=== PATIENT | male | born 1955 | race Caucasian/White ===

== ENCOUNTER 2023-11-15 14:19 | Outpatient (AMB) | payer MEDICARE, SELFPAY ==
[2023-11-15 14:20] VITALS: BP 142/68; PULSE 85; RESP 16; O2SAT 96; BMI 28.5
--- NOTE | 2023-11-15 14:20 | MHC.OFFVIS ---
Intake Vital Signs 11/15/23 14:20 Height 5 ft 9 in Weight 193 lb 2 oz BMI 28.5 BP 142/68 H Blood Pressure Location Rt brachial Position Sitting Respiration 16 Pulse 85 Pulse Oximetry (%) 96 Oxygen Delivery Method Room Air Intake Visit Reasons: E-EXTERIOR DOOR INSTALLER: Tremors-CONF Intake Note: Pt presents for new pt evaluation for tremors. Pt reports having tremors of both hands for about 10 years now but it is getting worse. 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 It started as a mild right hand tremors and intermittent about 10 years ago .It has worsened and now has left hand tremors. He has tremors when he is eating drinking and is socially awkward. It is more when he stressed. He has some trouble writing intermittently. Mild trouble with utensils. He can shower , dress with no problems No change in walking No voice tremors, head tremors His son is 40 and is starting to notice tremors.(mild head tremors) He denies depression or anxiety. He had a fall on ice and hit his head. He rondon son and off constipation. sleep is ok. COUNTS INCLUDE 234 BEDS AT THE [facility] Medical History (Updated 11/15/23 @ 15:24 by Tonja Mcdonald MD) Coarse tremors GERD (gastroesophageal reflux disease) Back pain Erectile dysfunction Hyperlipidemia Prostate cancer Arthritis Surgical History (Updated 11/15/23 @ 14:26 by Padmini Shoemaker CMA) Hx of knee surgery History of back surgery Family History (Updated 11/15/23 @ 14:28 by Padmini Shoemaker CMA) Father No problems noted. Mother No problems noted. Sister Stomach cancer Liver disease Lung disease Social History (Updated 11/15/23 @ 14:29 by Padmini Shoemaker CMA) Household Members: Spouse Housing: House Alcohol intake: current Comment: Occasional glass of wine Patient Tobacco Use Status: Never used Tobacco Physical Exam Vital Signs: Last Vital Signs Pulse 85 11/15/23 14:20 Resp 16 11/15/23 14:20 BP 142/68 H 11/15/23 14:20 Pulse Ox 96 11/15/23 14:20 Oxygen Delivery Method Room Air 11/15/23 14:20 BMI result Body Mass Index 28.5 Const General: cooperative, healthy appearing, comfortable and no acute distress Nutritional Appearance: average body habitus Orientation/consciousness: patient oriented x3 HEENT Head: Yes normal to inspection, Yes normocephalic and Yes atraumatic Eyes Pupils: Equal, round and reactive pupils present Neuro Other: Mild johana rest tremors R>L Mild johana postural tremors and action tremors mild difficulty with arcimedes spiral on the left Hand writing - good FFM - mildly decreased johana Foot Taps - mildly decreased johana Gait - good stride , decreased arm swing on the left General: patient oriented x3, tone normal, moves all extremities and no focal motor deficits Cranial nerves: Yes CN's II-XII intact bilaterally, Yes Facial sensation intact/muscles of mastication intact, Yes Equal, round and reactive pupils present, Yes Bilaterally intact EOM present, Yes Nystagmus not present, Yes Normal facial strength present, Yes Midline tongue present and Yes Symmetric palate elevation present Cognition (Neuro): normal cognition Motor exam (neuro): 5/5 motor strength present throughout and Normal motor muscle tone present throughout Deep tendon reflexes (DTR's): Right triceps reflex intensity grade: 2+, Left triceps reflex intensity grade: 2+, Rt Biceps (C5, C6): 2+, Left biceps reflex intensity grade: 2+, Right brachioradialis reflex intensity grade: 2+, Left brachioradialis reflex intensity grade: 2+, Right patellar reflex intensity grade: 2+ and Left patellar reflex intensity grade: 2+ Coordination: [id number] test normal Assessment & Plan Assessment & Plan (1) Coarse tremors: Comment: likely essential with Mild extrapyramidal symptoms Code(s): G25.2 - Other specified forms of tremor Plan I will evaluate him with MRI brain and Yovany scan . Propranolol 10mg as needed for tremors. Orders: Orders MR head/brain wo con Today G25.2 - Other specified forms of tremor DaTscan Today G25.2 - Other specified forms of tremor Medications: New propranolol 10 mg PO TID PRN 90 tabs 6RF tremors Coding Level of Care Code New Pt Level 4 (53537) Diagnoses Coarse tremors G25.2
== END 2023-11-15 15:08 | disposition home or self-care (01) ==
PROVIDERS: PCP Internal Medicine; Visit Provider Psychiatry & Neurology Neurology
DX: G25.2 Other specified forms of tremor (principal)
CPT/HCPCS: 99204

== ENCOUNTER → 2023-11-15 14:19 | Outpatient (BNVA) | payer MEDICARE, SELFPAY | PROVIDERS: PCP Internal Medicine; Visit Provider Psychiatry & Neurology Neurology | DX: G25.2 Other specified forms of tremor (principal) | CPT/HCPCS: 99202 ==

== ENCOUNTER 2023-12-13 08:06 | Outpatient (REF) | payer MEDICARE, SELFPAY ==
--- NOTE | ~2023-12-13 | MR_ITS ---
EXAMINATION: MR BRAIN WITHOUT CONTRAST CLINICAL INFORMATION: Tremor COMPARISON: None available. TECHNIQUE: MRI of the brain was obtained using routine sequences without contrast. FINDINGS: No acute intracranial hemorrhage or infarct. Scattered and confluent periventricular and deep white matter T2/FLAIR hyperintensities, nonspecific however commonly seen with small vessel ischemic disease. No midline shift or hydrocephalus. No acute extra-axial fluid collections. The osseous structures are unremarkable. The pituitary gland, pineal gland and remaining midline structures are unremarkable. No orbital pathology. Mild mucosal thickening of the paranasal sinuses. The mastoid air cells are clear. MR/MR head/brain wo con IMPRESSION: No acute intracranial abnormality.
== END 2023-12-13 08:07 | disposition home or self-care (01) ==
LOC: HO.MRI 08:06
PROVIDERS: PCP Internal Medicine; Visit Provider Psychiatry & Neurology Neurology
DX: G25.2 Other specified forms of tremor (principal)
CPT/HCPCS: 70551

== ENCOUNTER 2024-05-28 13:19 | Outpatient (AMB) | payer MEDICARE, SELFPAY ==
[2024-05-28 13:27] VITALS: BP 120/66; PULSE 67; RESP 16; O2SAT 99; BMI 28.0
--- NOTE | 2024-05-28 13:27 | A.OFFVIS_ITS ---
Vital Signs 05/28/24 13:27 Height 5 ft 9 in Weight 189 lb 8 oz BMI 28.0 BP 120/66 Blood Pressure Location Rt brachial Position Sitting Respiration 16 Pulse 67 Pulse Source Pulse Oximeter Pulse Oximetry (%) 99 Oxygen Delivery Method Room Air Intake Visit Reasons: 6 month F/U Intake Note: Pt presents to the office for a 6 month follow up for coarse tremors. 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 MRI brain was normal and MARCELLE scan was negative. History from initial visit-It started as a mild right hand tremors and intermittent about 10 years ago .It has worsened and now has left hand tremors. He has tremors when he is eating drinking and is socially awkward. It is more when he stressed. He has some trouble writing intermittently. Mild trouble with utensils. He can shower , dress with no problems No change in walking No voice tremors, head tremors His son is 40 and is starting to notice tremors.(mild head tremors) He denies depression or anxiety. He had a fall on ice and hit his head. He rondon son and off constipation. sleep is ok. [facility] Medical History Coarse tremors GERD (gastroesophageal reflux disease) Back pain Erectile dysfunction Hyperlipidemia Prostate cancer Arthritis Surgical History Hx of knee surgery History of back surgery Family History Father No problems noted. Mother No problems noted. Sister Stomach cancer Liver disease Lung disease Social History Household Members: Spouse Housing: House Alcohol intake: current Comment: Occasional glass of wine Patient Tobacco Use Status: Never used Tobacco Physical Exam Vital Signs: Last Vital Signs Pulse 67 05/28/24 13:27 Resp 16 05/28/24 13:27 BP 120/66 05/28/24 13:27 Pulse Ox 99 05/28/24 13:27 Oxygen Delivery Method Room Air 05/28/24 13:27 BMI result Body Mass Index 28.0 Const General: cooperative, healthy appearing, comfortable and no acute distress Nutritional Appearance: average body habitus Orientation/consciousness: patient oriented x3 HEENT Head: Yes normal to inspection, Yes normocephalic and Yes atraumatic Eyes Pupils: Equal, round and reactive pupils present Neuro Other: No tremors today mild difficulty with arcimedes spiral on the left Hand writing - good FFM - mildly decreased johana Foot Taps - mildly decreased johana Gait - good stride , decreased arm swing on the left General: patient oriented x3, tone normal, moves all extremities and no focal motor deficits Cranial nerves: Yes CN's II-XII intact bilaterally, Yes Facial sensation intact/muscles of mastication intact, Yes Equal, round and reactive pupils pres ent, Yes Bilaterally intact EOM present, Yes Nystagmus not present, Yes Normal facial strength present, Yes Midline tongue present and Yes Symmetric palate elevation present Motor exam (neuro): 5/5 motor strength present throughout and Normal motor muscle tone present throughout Coordination: [id number] test normal Assessment & Plan Assessment & Plan (1) Coarse tremors: Comment: likely essential with Mild extrapyramidal symptoms MARCELLE - negative MRI Normal Code(s): G25.2 - Other specified forms of tremor Category: Medical Plan Reviewed MRI and MARCELLE scan results Continue Propranolol 10mg as needed for tremors. Medications: Refilled propranolol 10 mg PO TID PRN 90 tabs 6RF tremors Coding Level of Care Code Est Pt Level 4 (33599) Diagnoses Coarse tremors G25.2
== END 2024-05-28 13:50 | disposition home or self-care (01) ==
PROVIDERS: PCP Internal Medicine; Visit Provider Psychiatry & Neurology Neurology
DX: G25.2 Other specified forms of tremor (principal)
CPT/HCPCS: 99214

== ENCOUNTER → 2024-05-28 13:19 | Outpatient (BNVA) | payer MEDICARE, SELFPAY | PROVIDERS: PCP Internal Medicine; Visit Provider Psychiatry & Neurology Neurology | DX: G25.2 Other specified forms of tremor (principal) | CPT/HCPCS: 99212 ==

== ENCOUNTER 2025-05-28 09:49 | Outpatient (AMB) | payer MEDICARE, SELFPAY ==
--- NOTE | 2025-05-28 09:52 | MHC.OFFVIS ---
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 He is on propranolol 10 mg qam and it helps his tremors. MRI brain was normal and MARCELLE scan was negative. History from initial visit-It started as a mild right hand tremors and intermittent about 10 years ago .It has worsened and now has left hand tremors. He has tremors when he is eating drinking and is socially awkward. It is more when he stressed. He has some trouble writing intermittently. Mild trouble with utensils. He can shower , dress with no problems No change in walking No voice tremors, head tremors His son is 40 and is starting to notice tremors.(mild head tremors) He denies depression or anxiety. He had a fall on ice and hit his head. He rondon son and off constipation. sleep is ok. [facility] Medical History Coarse tremors GERD (gastroesophageal reflux disease) Back pain Erectile dysfunction Hyperlipidemia Prostate cancer Arthritis Surgical History Hx of knee surgery History of back surgery Family History Father No problems noted. Mother No problems noted. Sister Stomach cancer Liver disease Lung disease Social History Household Members: Spouse Housing: House Alcohol intake: current Comment: Occasional glass of wine Patient Tobacco Use Status: Never used Tobacco Physical Exam Vital Signs: Last Vital Signs Pulse 62 05/28/25 09:53 BP 124/76 05/28/25 09:53 Pulse Ox 97 05/28/25 09:53 Oxygen Delivery Method Room Air 05/28/25 09:53 BMI result Body Mass Index 27.4 Const General: cooperative, healthy appearing, comfortable and no acute distress Nutritional Appearance: average body habitus Orientation/consciousness: patient oriented x3 HEENT Head: Yes normal to inspection, Yes normocephalic and Yes atraumatic Eyes Pupils: Equal, round and reactive pupils present Neuro Other: very mild postural tremors today mild difficulty with arcimedes spiral on the left Hand writing - good FFM - mildly decreased johana Foot Taps - mildly decreased johana Gait - good stride , decreased arm swing on the left General: patient oriented x3, tone normal, moves all extremities and no focal motor deficits Cranial nerves: Yes CN's II-XII intact bilaterally, Yes Facial sensation intact/muscles of mastication intact, Yes Equal, round and reactive pupils present, Yes Bilaterally intact EOM present, Yes Nystagmus not present, Yes Normal facial strength present, Yes Midline tongue present and Yes Symmetric palate elevation present Motor exam (neuro): 5/5 motor strength present throughout and Normal motor muscle tone present throughout Coordination: [id number] test normal Assessment & Plan Assessment & Plan (1) Coarse tremors: Comment: likely essential with Mild extrapyramidal symptoms MARCELLE - negative MRI Normal Code(s): G25.2 - Other specified forms of tremor Category: Medical Plan will monitor Extrapyramidal symptoms Continue Propranolol 10mg qd can increase to bid Medications: Refilled propranolol 10 mg PO TID PRN 90 tabs 6RF tremors Coding Level of Care Code Est Pt Level 4 (28460) Diagnoses Coarse tremors G25.2
[2025-05-28 09:53] VITALS: BP 124/76; PULSE 62; O2SAT 97; BMI 27.4
--- OUTSIDE RECORDS SUMMARY | 2025-05-28 11:53 | XMS_ITS | Clinical Summary ---
Author Organization [facility] [address] [facility] Address [address] [place] [address] Phone Care Team Providers Care Silviculturist Name Role Phone Gage Shah MD Primary Care Provider Allergies No known active allergies Medications amLODIPine (NORVASC) 5 mg tablet Take 1 tablet (5 mg total) by mouth 1 (one) time each day. Active atorvastatin (LIPITOR) 20 mg tablet Take 1 tablet (20 mg total) by mouth at bedtime. Active barium sulfate (READI-CAT 2) 2 % (w/v) suspension Take 450 mL by mouth 1 (one) time. Active tadalafiL (CIALIS) 20 mg tablet Take 1 tablet (20 mg total) by mouth 1 (one) time each day if needed for erectile dysfunction. Active meloxicam (MOBIC) 15 mg tablet Take 1 tablet (15 mg total) by mouth 1 (one) time each day. Active omeprazole (PriLOSEC) [address] capsule Take 1 capsule (20 mg total) by mouth 1 (one) time each day. Do not crush or chew. Active Surgical History Surgery Date Site/Laterality Comments HERNIA REPAIR 2008 PROCEDURE: HISTORICAL HERNIA REPAIR/ING; COMMENT: bilat BACK SURGERY 2000 PROCEDURE: HISTORICAL BACK SURGERY; COMMENT: L4 OTHER SURGICAL HISTORY PROCEDURE: ---- OTHER ----; COMMENT: several fatty tumors removed OTHER SURGICAL HISTORY 2017 PROCEDURE: ---- OTHER ----; COMMENT: rezum procedure for BPH PROSTATECTOMY 11/2020 PROCEDURE: PROSTATECTOMY; COMMENT: prostate CA Family History Medical History Relation Name Comments Prostate cancer Father Coronary artery disease Mother arias y in life Hypertension Mother Stroke Mother Diabetes Neg Hx Relation Name Status Comments Father Mother Social History Tobacco Use Types Packs/Day Years Used Date Smoking Tobacco: Never Smokeless Tobacco: Never Alcohol Use Standard Drinks/Week Comments Yes 0 (1 standard drink = 0.6 oz pur e alcohol) Sex and Gender Information Value Date Recorded Sex Assigned at Not on file Legal Sex Male 10:34 AM EST Gender Identity Not on file Sexual Orientation Not on file Obstetrics History Last Filed Vital Signs Vital Sign Reading Time Taken Comments Blood Pressure 132/70 02/08/2024 3:23 PM EDT Pulse 73 02/08/2024 3:23 PM EDT Temperature - - Respiratory Rate - - Oxygen Saturation - - Inhaled Oxygen Concentration - - Weight 83.5 kg (184 lb) 02/08/2024 3:23 PM EDT Height 175.3 cm (5' 9 ) 02/08/2024 3:23 PM EDT Body Mass Index 27.17 02/08/2024 3:23 PM EDT Plan of Treatment Health Maintenance Due Date Last Done Comments Zoster Vaccines (1 of 2) 2004 Pneumococcal Vaccine: 50+ Years (2 of 2 - PPSV23) 03/11/2021 03/11/2020 Abdominal Aortic Aneurysm (AAA) Screen 08/02/2022 Cholesterol Screening (Lipid Panel) 08/02/2022 Colorectal Cancer Screening: Colonoscopy 08/02/2022 Falls Risk Assessment 08/02/2022 Hepatitis C Screening 08/02/2022 Medicare Annual Wellness Visit 08/02/2022 Social Influencers of Health Screening 08/02/2022 DTaP,Tdap,and Td Vaccines (2 - Td or Tdap) 10/04/2023 10/04/2013 Depression Screening 09/04/2024 COVID-19 Vaccine (3 - 2024-2 6 season) 2025 12/05/2020, 11/14/2020 Influenza Vaccine (#1) 2025 RSV Immunization Adult Patients (1 - 1-dose 75+ series) 2029 HIB Vaccines Aged Out No longer eligi ble based on patient's age to complete this topic HPV Vaccines Aged Out No longer eligi ble based on patient's age to complete this topic Hepatitis A Vaccines Aged Out No long er eligible based on patient's age to complete this topic Hepatitis B Vaccines Aged Out No long er eligible based on patient's age to complete this topic IPV Vaccines Aged Out No longer eligi ble based on patient's age to complete this topic MMR Vaccines Aged Out No longer eligi ble based on patient's age to complete this topic Meningococcal ACWY Vaccine Aged Out N o longer eligible based on patient's age to complete this topic Meningococcal B Vaccine Aged Out No l onger eligible based on patient's age to complete this topic RSV Immunization Patients Under 20 months Aged Out No longer eligible b ased on patient's age to complete this topic Varicella Vaccines Aged Out No longer eligible based on patient's age to complete this topic Insurance MEDICARE [facility] Care Teams Silviculturist Relationship Specialty Start Date End Date Gage Shah MD [address] [place] [id number] PCP - General 02/03/24
--- OUTSIDE RECORDS SUMMARY | 2025-05-28 11:53 | XMS_ITS | Clinical Summary ---
Author Organization [facility] Address [address] [place] [phone] Phone Care Team Providers Care Ornamenter Name Role Phone Gage Shah MD Primary Care Provider [phone] Self-Referred, Patient Unavailable Unavailab Nery Newton MD Unavailable Allergies No known active allergies Medications atorvastatin (LIPITOR) 20 MG tablet take 1 tablet by mouth everyday at bedtime Active meloxicam (MOBIC) 15 MG tablet Take 15 mg by mouth daily. Active propranoloL (INDERAL) 10 MG immediate release tablet TAKE 1 TABLET (10 MG) ORALLY 3 TIMES A DAY NEEDED FOR TREMORS 11/15/2023 Active amLODIPine (NORVASC) 5 MG tablet Take 5 mg by mouth daily. 12/23/2024 Active omeprazole (PRILOSEC) 20 MG capsule Take 20 mg by mouth as needed. 12/23/2024 Active acetaminophen (TYLENOL) 500 MG tablet Take 1,000 mg by mouth daily as needed for pain (specific location in comments). Active Active Problems Problem Noted Date Diagnosed Date Prostate cancer 01/21/2025 Social History Tobacco Use Types Packs/Day Years Used Date Smoking Tobacco: Never Passive Smoke Exposure: Never Smokeless Tobacco: Never Tobacco Cessation:Counseling Given: Not Answered Alcohol Use Standard Drinks/Week Comments Yes 0 (1 standard drink = 0.6 oz pur e alcohol) Occasional line Child or Family Care Answer Date Record ed Do you have problems with on e of the following making it difficult for you to work, study, or receive health care? No 01/17/2024 Education Answer Date Recorded Are you interested in more education? Not on adalgisa e 11/30/2023 Are you concerned about learning? Not on file 11/30/2023 No 11/30/2023 No 11/30/2023 Food Answer Date Recorded Within the past 6 months we worried whether our food would run out before we got money to buy more. Never True 01/17/2024 Within the past 6 months the food we bought just didn't last and we didn't have enough money to get more. Never True Residential Stability Answer Date Recor ded What is your housing situation today? I have clementina sing 01/17/2024 How many times have you move d in the past 12 months? Zero (I did not move) 01/17/2024 Paying for Meds Answer Date Recorded Do you have trouble paying for medicines? No 01/17/2024 Paying Utility Bills Answer Date Record ed Do you have trouble paying your heating or elect ricity bill? No 01/17/2024 Transportation Answer Date Recorded Has the lack of transportati on kept you from medical appointments or from getting medications? No 01/17/2024 Digital Access Answer Date Recorded No 11/30/2023 No 11/30/2023 Reliable internet access at home? Not on file 11/30/2023 Device with a working camera? Not on file Sex and Gender Information Value Date Recorded Sex Assigned at Not on file Legal Sex Male 2:11 PM EDT Gender Identity Not on file Sexual Orientation Not on file Last Filed Vital Signs Vital Sign Reading Time Taken Comments Blood Pressure 143/77 01/22/2025 7:28 AM EDT Pulse 58 01/22/2025 7:28 AM EDT Temperature 36.3 C (97.3 F) 01/22/2025 7:27 AM EDT Respiratory Rate 18 01/22/2025 7:28 AM EDT Oxygen Saturation 98% 01/22/2025 7:28 AM EDT Inhaled Oxygen Concentration - - Weight 85.1 kg (187 lb 9.8 oz) 01/22/2025 7:27 A M EDT Height 174 cm (5' 8.5 ) 08/14/2024 7:08 AM EST Body Mass Index 28.11 08/14/2024 7:08 AM EST Plan of Treatment Upcoming Encounters Date Type Department Care Team (Late st Contact Info) Description 07/17/2025 7:00 AM EST Blood Draw Laboratory Services, [facility] at [address] [address] Nery Andrade MD [address] [place] [phone] [email or web address] 07/17/2025 8:00 AM EST Office Visit [facility], [facility] at [address] [address] Nery Andrade MD [address] [place] [phone] [email or web address] Maryana Noguera, ANIKA [address] [place] [id number] [email or web address] Health Maintenance Due Date Last Done Comments LIPID PANEL 1954 DEPRESSION SCREENING 1966 HEPATITIS C SCREENING 1972 ZOSTER VACCINES (1 of 2) 1973 COLOGUARD 1999 COLONOSCOPY 1999 COLORECTAL CANCER SCREENING 1999 FIT TEST 1999 FOBT 1999 SIGMOIDOSCOPY 1999 VIRTUAL COLONOSCOPY 1999 PNEUMOCOCCAL VACCINES (50+ years) (2 of 2 - PPSV23) 05/06/2020 03/11/2020 Adult Td,Tdap Booster 10/04/2023 10/04/2013 INFLUENZA VACCINE (#1) 2025 , 07/22/2020 COVID-19 VACCINE (3 - 2024-2 6 season) 2025 12/05/2020, 11/14/2020 RSV VACCINE (1 - 1-dose 75+ series) 2029 SMOKING STATUS SCREENING (On ce After 26 Yrs) Completed 01/21/2025 HEPATITIS A VACCINES Aged Out No long er eligible based on patient's age to complete this topic HIB VACCINES Aged Out No longer eligi ble based on patient's age to complete this topic MENINGOCOCCAL VACCINES (ACWY) Aged Out No longer eligible based on patient's age to complete this topic MENINGOCOCCAL VACCINES (B) Aged Out N o longer eligible based on patient's age to complete this topic Medical Devices Not on file Insurance [employer] SUPPLEMENT MEDICARE PART A & B [employer] MEDEX SUPPLEMENT MEDICARE PART A & B [employer] MEDEX SUPPLEMENT MEDICARE PART A & B [employer] CROSS MEDEX SUPPLEMENT MEDICARE PART A & B [employer] CROSS MEDEX SUPPLEMENT MEDICARE PART A & B [employer] MEDEX SUPPLEMENT MEDICARE PART A & B Care Teams Ornamenter Relationship Specialty Start Date End Date Gage Shah MD [address] [place] [phone] PCP - General Internal Medicine 11/30/23 Self-Referred, Patient 01/01/24 Nery Andrade MD [address] [place] [phone] [email or web address] 01/01/24 Additional Source Comments The information contained in this document represents components of the legal health record. It is not the complete legal health record.[facility]
== END 2025-05-28 10:22 | disposition home or self-care (01) ==
LOC: HO.HSMS 09:50
PROVIDERS: PCP Internal Medicine; Visit Provider Psychiatry & Neurology Neurology
DX: G25.2 Other specified forms of tremor (principal)
CPT/HCPCS: 99214

== ENCOUNTER → 2025-05-28 09:49 | Outpatient (BNVA) | payer MEDICARE, SELFPAY | PROVIDERS: PCP Internal Medicine; Visit Provider Psychiatry & Neurology Neurology | DX: G25.2 Other specified forms of tremor (principal) | CPT/HCPCS: 99212 ==